=== PATIENT | male | born 1975 | race American Indian/Alaskan Native ===

== ENCOUNTER 2019-05-20 18:06 | Emergency (ER) | payer SELFPAY ==
--- NOTE | 2019-05-20 19:53 | Emergency Department Report ---
Blank Doc - Documentation Documentation: 44-year-old male that presents with right ankle and left femur pain s/p fall. This initial assessment/diagnostic orders/clinical plan/treatment(s) is/are subject to change based on patient's health status, clinical progression and re- assessment by fellow clinical providers in the ED. Further treatment and workup at subsequent clinical providers discretion. Patient/guardians urged not to elope from the ED as their condition may be serious if not clinically assessed and managed. Initial orders include: 1- Patient sent to [facility] for further evaluation and treatment 2- xrays
--- NOTE | 2019-05-20 21:04 | XRay Report ---
LEFT FEMUR 2 VIEWS INDICATION / CLINICAL INFORMATION: Fell twice since yesterday with left leg pain. COMPARISON: None available. FINDINGS: BONES / JOINT(S): No acute fracture or subluxation. No significant arthritis. SOFT TISSUES: No significant abnormality. ADDITIONAL FINDINGS: None. IMPRESSION: No acute abnormality. Signer Name: Crow Huber MD Signed: 05/20/2019 8:59 PM Workstation Name: [id number]
--- NOTE | 2019-05-20 21:04 | Emergency Department Report ---
ED Lower Extremity HPI - General Chief Complaint: Extremity Injury, Lower Stated Complaint: (R) LEG PAIN/FELL DOWNSTAIRS/SWOLLEN Time Seen by Provider: 05/20/19 19:51 Source: patient Mode of arrival: Ambulatory Limitations: No Limitations - History of Present Illness MD Complaint: thigh injury, ankle injury -: Gradual, days(s) (3) Type of Injury: inversion Place: home (Accidental slip and fall down the stairs resulting in pain and swelling to the hamstring on Saturday this was followed by a secondary fall due to the hamstring pain causing a twisting to the right ankle. Since that time he reports no improvement in his pain but pain is been lingering in a nonprogression fashion he is noted more swelling and some discoloration to his hamstring. Reports no prior injuries to these regions.) Worsens With: movement Associated Symptoms: swelling - Related Data Previous Rx's Medication Instructions Recorded Last Taken Type Ketorolac [Toradol] 10 mg PO Q6H PRN #14 tablet 05/20/19 Unknown Rx traMADoL [Ultram] 50 mg PO Q6HR PRN #14 tablet 05/20/19 Unknown Rx Allergies Allergy/AdvReac Type Severity Reaction Status Date / Time No Known Allergies Allergy Unverified 05/20/19 19:52 ED Review of Systems ROS: Stated complaint: (R) LEG PAIN/FELL DOWNSTAIRS/SWOLLEN Other details as noted in HPI Comment: All other systems reviewed and negative ED Past Medical Hx - Past Medical History Previous Medical History?: No - Surgical History Past Surgical History?: Yes Additional Surgical History: back surgery - Social History Smoking Status: Current Every Day Smoker Substance Use Type: Alcohol, Marijuana - Medications Home Medications: Home Medications Medication Instructions Recorded Confirmed Last Taken Type Ketorolac [Toradol] 10 mg PO Q6H PRN #14 tablet 05/20/19 Unknown Rx traMADoL [Ultram] 50 mg PO Q6HR PRN #14 tablet 05/20/19 Unknown Rx ED Physical Exam - General Limitations: No Limitations General appearance: alert, in no apparent distress - Head Head exam: Present: atraumatic, normocephalic - Eye Eye exam: Present: normal appearance, PERRL, EOMI - ENT ENT exam: Present: mucous membranes moist. Absent: normal exam, normal orophraynx, TM's normal bilaterally - Neck Neck exam: Present: normal inspection, full ROM - Respiratory Respiratory exam: Present: normal lung sounds bilaterally. Absent: respiratory distress - Cardiovascular Cardiovascular Exam: Present: regular rate, normal rhythm. Absent: systolic murmur, diastolic murmur, rubs, gallop - GI/Abdominal GI/Abdominal exam: Present: soft, normal bowel sounds - Rectal Rectal exam: Present: deferred - Extremities Exam Extremities exam: Present: normal inspection, tenderness, normal capillary refill - Expanded Lower Extremity Exam Left Hip exam: Present: normal inspection, full ROM Upper Leg exam: Present: tenderness, swelling (To the hamstring area with mild ecchymosis to the medial upper hamstring with swelling tenderness and some mild hardness begin to to), ecchymosis Knee exam: Present: normal inspection, full ROM Foot/Toe exam: Present: normal inspection, full ROM Neuro vascular tendon exam: Present: no vascular compromise 1 - There is some tenderness along the anterior talofibular ligament. Drawer test is negative for range of motion is noted strength is 5 of 5. Pulses 2+ no broken skin Achilles tendon is normal - Back Exam Back exam: Present: normal inspection - Neurological Exam Neurological exam: Present: alert, oriented X3, CN II-XII intact - Psychiatric Psychiatric exam: Present: normal affect, normal mood - Skin Skin exam: Present: warm, dry, intact, normal color. Absent: rash ED Course Vital Signs 05/20/19 19:49 Temperature 98.1 F Pulse Rate 81 Respiratory 18 Rate Blood Pressure 114/72 O2 Sat by Pulse 100 Oximetry Critical care attestation.: If time is entered above; I have spent that time in minutes in the direct care of this critically ill patient, excluding procedure time. ED Disposition Clinical Impression: Hamstring tear, Ankle sprain Disposition: TO HOME OR SELFCARE Is pt being admited?: No Does the pt Need Aspirin: No Condition: Stable Instructions: Ankle Exercises (GEN), Muscle Strain (ED), Ice Pack Application (ED), RICE Therapy (ED) Prescriptions: Ketorolac [Toradol] 10 mg PO Q6H PRN #14 tablet PRN Reason: Pain traMADoL [Ultram] 50 mg PO Q6HR PRN #14 tablet PRN Reason: Pain Referrals: LENORA BRAMBILA MD [Staff Physician] - 3-5 Days
--- NOTE | 2019-05-20 21:07 | XRay Report ---
Right ankle-3 views INDICATION: MAIN: pain s/p fall; Pt. states he has fallen twice since yesterday. Pt. states his lef t leg "gave out on him." Pt. denies LOC. . COMPARISON: None. IMPRESSION: Mild soft tissue swelling medially and anteriorly with no acute fracture or malalignment . No significant DJD. Signer Name: Janes Kim MD Signed: 05/20/2019 9:03 PM Workstation Name: [id number]
[2019-05-20 21:28] VITALS: BP 120/75
== END 2019-05-20 21:27 | disposition home or self-care (01) ==
LOC: ED 18:06
DX: S93.401A Sprain of unspecified ligament of right ankle, initial encounter (principal); S76.312A Strain of muscle, fascia and tendon of the posterior muscle group at thigh level, left thigh, initial encounter; F12.90 Cannabis use, unspecified, uncomplicated; F17.200 Nicotine dependence, unspecified, uncomplicated; Z79.899 Other long term (current) drug therapy; Z98.890 Other specified postprocedural states; W19.XXXA Unspecified fall, initial encounter; Y93.89 Activity, other specified; Y92.89 Other specified places as the place of occurrence of the external cause; Y99.8 Other external cause status